=== PATIENT | female | born 1980 | race Caucasian/White ===

== ENCOUNTER 2020-07-26 23:00 | Emergency (ER) | payer MEDICAID ==
[~2020-07-26] VITALS: Ht 152.4 cm; Wt 70.0 kg
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
[2020-07-27 01:00] VITALS: BP 112/79
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
== END 2020-07-27 02:13 | disposition home or self-care (01) ==
LOC: ED 23:39
DX: S06.0X0A Concussion without loss of consciousness, initial encounter (principal); I10 Essential (primary) hypertension; R41.3 Other amnesia; F17.200 Nicotine dependence, unspecified, uncomplicated; Z88.0 Allergy status to penicillin; X58.XXXA Exposure to other specified factors, initial encounter; Y93.89 Activity, other specified; Y92.89 Other specified places as the place of occurrence of the external cause; Y99.8 Other external cause status
CPT/HCPCS: 70450; 99284